=== PATIENT | female | born 2000 | race Caucasian/White ===

== ENCOUNTER → 2025-03-08 | Outpatient (REF) | LOC: M LAB 12:27 | PROVIDERS: ATTEND Family Medicine | DX: Z01.89 Encounter for other specified special examinations (principal) ==

== ENCOUNTER → 2025-03-12 | Outpatient (REF) | LOC: M RAD 09:01 | PROVIDERS: ATTEND Family Medicine | DX: Z01.89 Encounter for other specified special examinations (principal) ==